=== PATIENT | female | born 1995 | race Asian ===

== ENCOUNTER 2023-10-28 05:17 | Emergency (ER) | payer OTHER ==
[~2023-10-28] VITALS: Ht 162.6 cm; Wt 64.0 kg
[2023-10-28 05:22] VITALS: O2SAT 98
[2023-10-28 06:00] LABS: BASOPHILS % 0.6 % (0.0-2.0); CHLORIDE 104 mEq/L (98-107); EOSINOPHILS % 1.1 % (0.0-5.0); HEMATOCRIT. 40.8 % (36.0-48.0); HEMOGLOBIN. 13.5 g/dL (12.0-16.0); LYMPHOCYTES % 25.7 % (20.0-50.0); MEAN CORPUSCULAR HEMOGLOBIN 30.3 pg (28.0-32.0); MEAN CORPUSCULAR HGB CONC 33.1 g/dL (31.0-37.0); MEAN CORPUSCULAR VOLUME 91.8 fL (81.0-99.0); MEAN PLATELET VOLUME 7.9 fl (7.4-10.4); MONOCYTES % 4.6 % (2.0-8.0); PLATELET 333 x1000/uL (130-400); POTASSIUM 3.6 mEq/L (3.5-5.1); RED BLOOD CELL COUNT 4.45 mill/uL (4.2-5.4); RED CELL DISTRIBUTION WIDTH 12.5 % (11.6-14.6); SODIUM 137 mEq/L (136-145)
[2023-10-28 06:01] LABS: CALCIUM 9.5 mg/dL (8.7-10.4); CARBON DIOXIDE 24 mEq/L (21-32)
[2023-10-28 06:06] LABS: CREATININE 0.6 mg/dL (0.6-1.0); GLUCOSE 343 mg/dL (70-105); UREA NITROGEN BLOOD 10 mg/dL (9-23)
[2023-10-28 06:08] LABS: ETHANOL BLOOD < 10 mg/dL (<10)
[2023-10-28 06:22] LABS: CLARITY URINE CLEAR (CLEAR); COLOR URINE YELLOW (YELLOW); GLUCOSE URINE 3+ (NEGATIVE); KETONES URINE TRACE (NEGATIVE); LEUKOCYTE ESTERASE URINE NEGATIVE (NEGATIVE); NITRITE URINE NEGATIVE (NEGATIVE); OCCULT BLOOD URINE NEGATIVE (NEGATIVE); PROTEIN URINE TRACE (NEGATIVE); SPECIFIC GRAVITY URINE 1.047 (1.005-1.030); UROBILINOGEN URINE 0.2 E.U./dL (0.2-1.0)
[2023-10-28 06:36] LABS: HCG SCREEN NEGATIVE
[2023-10-28] MEDS: LORAZEPAM 2MG/ML INJ IM STA (06:36)
[2023-10-28 06:38] LABS: *AMPHETAMINES SCREEN URINE NEGATIVE (NEGATIVE); *BARBITURATES SCREEN URINE NEGATIVE (NEGATIVE); *BENZODIAZEPINES SCREEN URINE NEGATIVE (NEGATIVE); *COCAINE SCREEN URINE NEGATIVE (NEGATIVE); CANNABINOID URINE SCREEN NEGATIVE (NEGATIVE); METHADONE URINE SCREEN NEGATIVE (NEGATIVE); OPIATES URINE SCREEN NEGATIVE (NEGATIVE); PHENCYCLIDINE URINE SCREEN NEGATIVE (NEGATIVE)
[2023-10-28 07:32] LABS: BACTERIA URINE NONE SEEN; RBC URINE NONE SEEN /hpf (0-2); SQUAMOUS EPITHELIAL CELL URINE NONE SEEN /lpf (RARE/1+); WBC URINE NONE SEEN /hpf (0-2); YEAST URINE NONE SEEN
[2023-10-28] MEDS: METFORMIN HCL 500MG TABLET PO STA (13:02)
[2023-10-28 16:17] VITALS: BP 136/97; PULSE 64; RESP 20; TEMP 98
== END 2023-10-28 16:00 ==
LOC: ER 05:17
DX: F23 Brief psychotic disorder (principal); E11.9 Type 2 diabetes mellitus without complications; F31.9 Bipolar disorder, unspecified; Z20.822 Contact with and (suspected) exposure to COVID-19
CPT/HCPCS: 80305; 80048; 81003; 80320; 84703; 85025; 36415; 96372; 99285; 87426; J2060; G0480

== ENCOUNTER 2023-12-07 11:45 | Emergency (ER) | payer MEDICAID, OTHER ==
[~2023-12-07] VITALS: Ht 177.8 cm; Wt 100.0 kg
[2023-12-07 11:51] VITALS: O2SAT 99
[2023-12-07] MEDS: LORAZEPAM 2MG/ML INJ IM ONE ×2 (12:09→14:45)
[2023-12-07] MEDS: OLANZAPINE 10 MG/VIAL IM ONE (12:09)
[2023-12-07 12:33] LABS: CLARITY URINE CLEAR (CLEAR); COLOR URINE YELLOW (YELLOW); GLUCOSE URINE 3+ (NEGATIVE); KETONES URINE NEGATIVE (NEGATIVE); LEUKOCYTE ESTERASE URINE TRACE (NEGATIVE); NITRITE URINE NEGATIVE (NEGATIVE); OCCULT BLOOD URINE NEGATIVE (NEGATIVE); PROTEIN URINE TRACE (NEGATIVE); SPECIFIC GRAVITY URINE 1.023 (1.005-1.030); UROBILINOGEN URINE 0.2 E.U./dL (0.2-1.0)
[2023-12-07 12:55] LABS: BACTERIA URINE 1+; RBC URINE 0-2 /hpf (0-2); SQUAMOUS EPITHELIAL CELL URINE 3+ /lpf (RARE/1+)
[2023-12-07 12:56] LABS: YEAST URINE NONE SEEN
[2023-12-07 13:08] LABS: *AMPHETAMINES SCREEN URINE NEGATIVE (NEGATIVE); *BARBITURATES SCREEN URINE NEGATIVE (NEGATIVE); *BENZODIAZEPINES SCREEN URINE NEGATIVE (NEGATIVE); *COCAINE SCREEN URINE NEGATIVE (NEGATIVE); CANNABINOID URINE SCREEN NEGATIVE (NEGATIVE); METHADONE URINE SCREEN NEGATIVE (NEGATIVE); OPIATES URINE SCREEN NEGATIVE (NEGATIVE); PHENCYCLIDINE URINE SCREEN NEGATIVE (NEGATIVE)
[2023-12-07 13:09] LABS: ECSTASY MDMA SCREEN URINE NEGATIVE (NEGATIVE)
[2023-12-07] MEDS: ACETAMINOPHEN 325MG TABLET PO ONE (13:56)
[2023-12-07] MEDS: METFORMIN HCL 500MG TABLET PO SCH (13:57)
[2023-12-07] MEDS: DIPHENHYDRAMINE 50MG/ML VIAL IM ONE (14:45)
[2023-12-07] MEDS: HALOPERIDOL LACTATE 5MG/ML VIAL IM ONE (14:45)
[2023-12-07 15:55] LABS: BASOPHILS % 0.4 % (0.0-2.0); EOSINOPHILS % 0.6 % (0.0-5.0); HEMATOCRIT. 37.9 % (36.0-48.0); HEMOGLOBIN. 12.7 g/dL (12.0-16.0); LYMPHOCYTES % 20.5 % (20.0-50.0); MEAN CORPUSCULAR HEMOGLOBIN 30.9 pg (28.0-32.0); MEAN CORPUSCULAR HGB CONC 33.4 g/dL (31.0-37.0); MEAN CORPUSCULAR VOLUME 92.6 fL (81.0-99.0); MEAN PLATELET VOLUME 7.6 fl (7.4-10.4); MONOCYTES % 5.4 % (2.0-8.0); NEUTROPHILS % 73.1 % (40.0-76.0); PLATELET 345 x1000/uL (130-400); RED BLOOD CELL COUNT 4.09 mill/uL (4.2-5.4); RED CELL DISTRIBUTION WIDTH 12.8 % (11.6-14.6); WHITE BLOOD COUNT 14.3 x1000/uL (4.5-11.0)
[2023-12-07 15:59] LABS: CHLORIDE 103 mEq/L (98-107); SODIUM 137 mEq/L (136-145)
[2023-12-07 16:00] LABS: CARBON DIOXIDE 27 mEq/L (21-32)
[2023-12-07 16:01] LABS: CALCIUM 9.1 mg/dL (8.7-10.4)
[2023-12-07 16:05] LABS: CREATININE 0.7 mg/dL (0.6-1.0); GLUCOSE 274 mg/dL (70-105); UREA NITROGEN BLOOD 17 mg/dL (9-23)
[2023-12-07 16:12] LABS: HCG SCREEN NEGATIVE
[2023-12-07 16:21] LABS: ETHANOL BLOOD < 10 mg/dL (<10)
[2023-12-08 12:02] VITALS: BP 122/87; PULSE 80; RESP 16; TEMP 36.78072; O2SAT 100
== END 2023-12-08 12:47 ==
LOC: ER 11:45
DX: R45.850 Homicidal ideations (principal); E11.9 Type 2 diabetes mellitus without complications
CPT/HCPCS: 80305; 80048; 81003; 80320; 82962 ×2; 84703; 85025; 36415; 96372; 99291; 87426; J1200; J1630; J2060; 90935; G0480

== ENCOUNTER 2023-12-28 15:05 | Emergency (ER) | payer MEDICAID ==
[~2023-12-28] VITALS: Ht 165.1 cm; Wt 66.0 kg
[2023-12-28 15:09] VITALS: O2SAT 98
[2023-12-28 15:59] LABS: BASOPHILS % 0.4 % (0.0-2.0); EOSINOPHILS % 0.9 % (0.0-5.0); HEMATOCRIT. 41.4 % (36.0-48.0); HEMOGLOBIN. 13.3 g/dL (12.0-16.0); LYMPHOCYTES % 21.5 % (20.0-50.0); MEAN CORPUSCULAR HEMOGLOBIN 29.5 pg (28.0-32.0); MEAN CORPUSCULAR HGB CONC 32.1 g/dL (31.0-37.0); MEAN CORPUSCULAR VOLUME 91.8 fL (81.0-99.0); MEAN PLATELET VOLUME 7.5 fl (7.4-10.4); MONOCYTES % 4.6 % (2.0-8.0); NEUTROPHILS % 72.6 % (40.0-76.0); PLATELET 372 x1000/uL (130-400); RED BLOOD CELL COUNT 4.51 mill/uL (4.2-5.4); RED CELL DISTRIBUTION WIDTH 12.6 % (11.6-14.6); WHITE BLOOD COUNT 11.1 x1000/uL (4.5-11.0)
[2023-12-28 16:01] LABS: CHLORIDE 104 mEq/L (98-107); POTASSIUM 3.8 mEq/L (3.5-5.1); SODIUM 137 mEq/L (136-145)
[2023-12-28 16:02] LABS: CARBON DIOXIDE 27 mEq/L (21-32)
[2023-12-28 16:03] LABS: CALCIUM 9.5 mg/dL (8.7-10.4)
[2023-12-28 16:07] LABS: CREATININE 0.7 mg/dL (0.6-1.0); GLUCOSE 287 mg/dL (70-105); HCG SCREEN NEGATIVE; UREA NITROGEN BLOOD 10 mg/dL (9-23)
[2023-12-28 16:09] LABS: ACETAMINOPHEN < 2 ug/mL (10-30)
[2023-12-28 16:12] LABS: THYROID STIMULATING HORMONE 1.52 uIU/mL (0.55-4.78)
[2023-12-28 16:21] LABS: ETHANOL BLOOD < 10 mg/dL (<10)
[2023-12-28 16:58] LABS: ALANINE AMINOTRANSFERASE 11 IU/L (10-49); ALBUMIN 4.5 g/dL (3.2-4.8); ASPARTATE AMINOTRANSFERASE 16 IU/L (<34); BILIRUBIN DIRECT 0.1 mg/dL (<=3.0); BILIRUBIN TOTAL 0.7 mg/dL (0.1-1.0)
[2023-12-28 16:59] LABS: PROTEIN TOTAL 6.9 g/dL (6.0-8.3)
[2023-12-28 17:31] LABS: CLARITY URINE CLEAR (CLEAR); COLOR URINE YELLOW (YELLOW); GLUCOSE URINE 3+ (NEGATIVE); KETONES URINE TRACE (NEGATIVE); LEUKOCYTE ESTERASE URINE NEGATIVE (NEGATIVE); NITRITE URINE NEGATIVE (NEGATIVE); OCCULT BLOOD URINE NEGATIVE (NEGATIVE); PH URINE 6.5 (4.5-8.0); PROTEIN URINE NEGATIVE (NEGATIVE); SPECIFIC GRAVITY URINE 1.045 (1.005-1.030); UROBILINOGEN URINE 0.2 E.U./dL (0.2-1.0)
[2023-12-28 17:38] LABS: *AMPHETAMINES SCREEN URINE NEGATIVE (NEGATIVE); *BARBITURATES SCREEN URINE NEGATIVE (NEGATIVE); *BENZODIAZEPINES SCREEN URINE NEGATIVE (NEGATIVE); *COCAINE SCREEN URINE NEGATIVE (NEGATIVE)
[2023-12-28 17:39] LABS: CANNABINOID URINE SCREEN NEGATIVE (NEGATIVE); ECSTASY MDMA SCREEN URINE NEGATIVE (NEGATIVE); METHADONE URINE SCREEN NEGATIVE (NEGATIVE); OPIATES URINE SCREEN NEGATIVE (NEGATIVE); PHENCYCLIDINE URINE SCREEN NEGATIVE (NEGATIVE)
[2023-12-28 17:44] LABS: BACTERIA URINE 1+; RBC URINE 0-2 /hpf (0-2); SQUAMOUS EPITHELIAL CELL URINE 1+ /lpf (RARE/1+)
[2023-12-28] MEDS: ACETAMINOPHEN 500MG TABLET PO ONE (22:30)
[2023-12-29] MEDS: LORAZEPAM 2MG/ML INJ IM ONE (06:00)
[2023-12-29] MEDS: DIPHENHYDRAMINE 50MG/ML VIAL IM ONE (06:00)
[2023-12-29] MEDS: HALOPERIDOL LACTATE 5MG/ML VIAL IM ONE (06:00)
[2023-12-29 14:56] VITALS: BP 122/70; PULSE 64; RESP 16; TEMP 36.94740; O2SAT 100
[2023-12-29] MEDS ORDERED: OLANZAPINE 5MG TABLET ODT PO SCH (21:00)
== END 2023-12-29 16:22 ==
LOC: ER 15:05
DX: R45.850 Homicidal ideations (principal); E11.9 Type 2 diabetes mellitus without complications
CPT/HCPCS: 80076; 80305; 80048; 81003; 80307; 80329; 80320; 84703; 84443; 85025; 36415; 99285; 96372; J1200; J1630; J2060; G0480

== ENCOUNTER 2024-01-20 10:57 | Emergency (ER) | payer MEDICAID ==
[~2024-01-20] VITALS: Ht 167.6 cm; Wt 90.0 kg
[2024-01-20 11:01] VITALS: O2SAT 99
[2024-01-20] MEDS ORDERED: OLANZAPINE 10 MG/VIAL IM STA (11:03)
[2024-01-20] MEDS ORDERED: LORAZEPAM 2MG/ML INJ IM STA (11:03)
[2024-01-20] MEDS: HALOPERIDOL LACTATE 5MG/ML VIAL IM ONE (11:29)
[2024-01-20] MEDS: DIPHENHYDRAMINE 50MG/ML VIAL IM STA (11:29)
[2024-01-20] MEDS: LORAZEPAM 2MG/ML INJ IM ONE (11:29)
[2024-01-20 12:11] LABS: CHLORIDE 107 mEq/L (98-107); POTASSIUM 3.7 mEq/L (3.5-5.1); SODIUM 140 mEq/L (136-145)
[2024-01-20 12:12] LABS: CARBON DIOXIDE 25 mEq/L (21-32)
[2024-01-20 12:13] LABS: CALCIUM 9.1 mg/dL (8.7-10.4)
[2024-01-20 12:17] LABS: CREATININE 0.6 mg/dL (0.6-1.0)
[2024-01-20 12:18] LABS: GLUCOSE 190 mg/dL (70-105); UREA NITROGEN BLOOD 11 mg/dL (9-23)
[2024-01-20 12:19] LABS: ETHANOL BLOOD < 10 mg/dL (<10)
[2024-01-20 12:47] LABS: BASOPHILS % 0.4 % (0.0-2.0); EOSINOPHILS % 0.9 % (0.0-5.0); HEMOGLOBIN. 13.2 g/dL (12.0-16.0); LYMPHOCYTES % 18.3 % (20.0-50.0); MEAN CORPUSCULAR HEMOGLOBIN 30.2 pg (28.0-32.0); MEAN CORPUSCULAR HGB CONC 32.2 g/dL (31.0-37.0); MEAN CORPUSCULAR VOLUME 93.6 fL (81.0-99.0); MONOCYTES % 5.2 % (2.0-8.0); NEUTROPHILS % 75.2 % (40.0-76.0); RED BLOOD CELL COUNT 4.38 mill/uL (4.2-5.4); RED CELL DISTRIBUTION WIDTH 12.6 % (11.6-14.6); WHITE BLOOD COUNT 9.7 x1000/uL (4.5-11.0)
[2024-01-20 13:01] LABS: DIFFERENTIAL COMMENT 1
[2024-01-20 13:40] LABS: CLARITY URINE CLEAR (CLEAR); COLOR URINE YELLOW (YELLOW); GLUCOSE URINE NEGATIVE (NEGATIVE); KETONES URINE NEGATIVE (NEGATIVE); LEUKOCYTE ESTERASE URINE TRACE (NEGATIVE); NITRITE URINE NEGATIVE (NEGATIVE); OCCULT BLOOD URINE NEGATIVE (NEGATIVE); PH URINE 6.5 (4.5-8.0); PROTEIN URINE 1+ (NEGATIVE); SPECIFIC GRAVITY URINE 1.021 (1.005-1.030); UROBILINOGEN URINE 0.2 E.U./dL (0.2-1.0)
[2024-01-20 13:54] LABS: *AMPHETAMINES SCREEN URINE NEGATIVE (NEGATIVE); *BARBITURATES SCREEN URINE NEGATIVE (NEGATIVE); *BENZODIAZEPINES SCREEN URINE NEGATIVE (NEGATIVE); *COCAINE SCREEN URINE NEGATIVE (NEGATIVE); METHADONE URINE SCREEN NEGATIVE (NEGATIVE); OPIATES URINE SCREEN NEGATIVE (NEGATIVE)
[2024-01-20 13:55] LABS: CANNABINOID URINE SCREEN NEGATIVE (NEGATIVE); ECSTASY MDMA SCREEN URINE NEGATIVE (NEGATIVE); PHENCYCLIDINE URINE SCREEN NEGATIVE (NEGATIVE)
[2024-01-20 14:05] LABS: PLATELET 334 x1000/uL (130-400)
[2024-01-20 14:22] LABS: HYALINE CASTS URINE 0-5 /lpf
[2024-01-20 14:23] LABS: FINE GRANULAR CASTS URINE 0-5 /lpf
[2024-01-20 14:24] LABS: RBC URINE 0-2 /hpf (0-2)
[2024-01-20 14:25] LABS: BACTERIA URINE 1+; SQUAMOUS EPITHELIAL CELL URINE FEW /lpf (RARE/1+)
[2024-01-21] MEDS: DIPHENHYDRAMINE 50MG/ML VIAL IM STA (01:11)
[2024-01-21 06:03] LABS: ACETAMINOPHEN < 2 ug/mL (10-30); ALANINE AMINOTRANSFERASE 12 IU/L (10-49); ALBUMIN 4.7 g/dL (3.2-4.8); ASPARTATE AMINOTRANSFERASE 20 IU/L (<34); BILIRUBIN DIRECT 0.2 mg/dL (<=3.0); BILIRUBIN TOTAL 0.7 mg/dL (0.1-1.0); PROTEIN TOTAL 7.2 g/dL (6.0-8.3)
[2024-01-21 06:13] LABS: HCG SCREEN NEGATIVE
[2024-01-21] MEDS ORDERED: METF-873 MT (10:46)
[2024-01-21] MEDS ORDERED: GABA-532 MT (10:46)
[2024-01-21] MEDS: ACETAMINOPHEN 325MG TABLET PO ONE (11:14)
[2024-01-21] MEDS: METFORMIN HCL 500MG TABLET PO ONE (11:23)
[2024-01-21 21:10] VITALS: BP 136/72; PULSE 88; RESP 16; TEMP 37.00296; O2SAT 98
== END 2024-01-21 22:04 ==
LOC: ER 10:57
DX: R45.1 Restlessness and agitation (principal); E11.9 Type 2 diabetes mellitus without complications; Z20.822 Contact with and (suspected) exposure to COVID-19
CPT/HCPCS: 80305; 80048; 81003; 80320; 85025; 36415 ×2; 96372; 99285; 80076; 80307; 80329; 84703; 87426; J1200; J1630; J2060; Z7610 ×2; G0480